=== PATIENT | female | born 1960 | race Caucasian/White ===

== ENCOUNTER → 2016-07-12 | Outpatient (CLI) | payer BC ==
[2013-11-23 12:55] VITALS: BP 109/65
[~2016-07-12] MED LIST: ALEVE220 MG PO; CALCIUM600 MG PO; CLINDAMYCIN 300MG PO; COMBIVENT1 AR1 IH; DOXYCYCLINE 10100 MG PO; DUO-KAPS1 CAP PO; IRON324 M1 PO; PREDNISONE20 M1 PO; PREDNISONE20 MG PO; REMERON15 MG PO; VITAMIN C PURE500 M1 PO
== END ==
LOC: LAB 11:53
DX: Z00.00 Encounter for general adult medical examination without abnormal findings (principal); E61.1 Iron deficiency

== ENCOUNTER → 2016-07-19 | Outpatient (CLI) | payer BC ==
[2013-11-23 12:55] VITALS: BP 109/65
== END ==
LOC: MAMMO 08:37
DX: Z12.31 Encounter for screening mammogram for malignant neoplasm of breast (principal)
CPT/HCPCS: G0202

== ENCOUNTER 2016-11-24 19:32 | Emergency (ER) | payer BC ==
[~2016-11-24] VITALS: Ht 170.2 cm; Wt 100.9 kg
[~2016-11-24 19:32] MED LIST changes: -CLINDAMYCIN 300MG PO; -PREDNISONE20 MG PO; -REMERON15 MG PO
[2016-11-24] MEDS ORDERED: REMERON15 MG PO (19:42)
[2016-11-24] MEDS ORDERED: CLINDAMYCIN 300MG PO (20:28)
[2016-11-24] MEDS ORDERED: PREDNISONE20 MG PO (20:56)
[2016-11-24 21:07] VITALS: BP 134/60
== END 2016-11-24 21:07 | disposition home or self-care (01) ==
LOC: ED 19:32
DX: L27.0 Generalized skin eruption due to drugs and medicaments taken internally (principal); T36.0X5A Adverse effect of penicillins, initial encounter; L29.9 Pruritus, unspecified; J32.9 Chronic sinusitis, unspecified; F17.210 Nicotine dependence, cigarettes, uncomplicated
CPT/HCPCS: J2930

== ENCOUNTER → 2016-12-01 | Outpatient (CLI) | payer BC ==
[2016-11-24 21:07] VITALS: BP 134/60
[~2016-12-01] MED LIST changes: +CLINDAMYCIN 300MG PO; +PREDNISONE20 MG PO; +REMERON15 MG PO
== END ==
LOC: LAB 08:52
DX: H60.02 Abscess of left external ear (principal)

== ENCOUNTER → 2018-02-01 | Outpatient (CLI) | payer BC ==
[2018-02-01 12:13] LABS: EOS # 0.2 (0.04-0.40); EOS % 2.5 % (1.0-5.0); HEMATOCRIT 48.8 % (37.0-47.0); HEMOGLOBIN 16.3 g/dL (12.5-16.0); LYMPH# 1.7 (1.50-4.00); MEAN CELL VOLUME 92 fl (78-100); MEAN CORPUSCULAR HEMOGLOBIN 31 pg (27-31); MEAN CORPUSCULAR HGB CONC 33 g/dL (33-37); MEAN PLATELET VOLUME 10.7 fl (7.4-10.4); MONO # 0.6 (0.20-0.80); NEU # 4.1 (1.40-6.50); PLATELET COUNT 189 K/mm3 (130-400); RED BLOOD COUNT 5.29 M/mm3 (4.10-5.30); RED CELL DISTRIBUTION WIDTH 13.5 % (11.5-14.5); WHITE BLOOD COUNT 6.5 K/mm3 (4.8-10.8)
[2018-02-01 12:27] LABS: ALBUMIN 4.2 g/dL (3.5-5.0); CALCIUM 9.1 mg/dL (8.4-10.2); POTASSIUM 4.4 mmol/L (3.6-5.0); TOTAL BILIRUBIN 0.7 mg/dL (0.2-1.3); TOTAL PROTEIN 7.2 g/dL (6.3-8.2)
[2018-02-01 14:57] LABS: ERYTHROCYTE SEDIMENTATION RATE 13 mm/hr (0-30)
== END ==
LOC: LAB 11:49
PROVIDERS: Internal Medicine
DX: Z12.11 Encounter for screening for malignant neoplasm of colon (principal); Z00.00 Encounter for general adult medical examination without abnormal findings

== ENCOUNTER → 2018-02-20 | Outpatient (CLI) | payer BC | LOC: MAMMO 12:58 → LAB 12:58 → MAMMO 13:00 | DX: Z12.31 Encounter for screening mammogram for malignant neoplasm of breast (principal) ==

== ENCOUNTER → 2018-03-06 | Outpatient (CLI) | payer BC ==
[2018-03-06 15:44] LABS: EOS # 0.1 (0.04-0.40); EOS % 1.7 % (1.0-5.0); HEMOGLOBIN 16.4 g/dL (12.5-16.0); LYMPH# 2.1 (1.50-4.00); MEAN CELL VOLUME 91 fl (78-100); MEAN CORPUSCULAR HEMOGLOBIN 31 pg (27-31); MEAN CORPUSCULAR HGB CONC 34 g/dL (33-37); MEAN PLATELET VOLUME 10.9 fl (7.4-10.4); MONO # 0.7 (0.20-0.80); NEU # 4.5 (1.40-6.50); PLATELET COUNT 210 K/mm3 (130-400); RED BLOOD COUNT 5.38 M/mm3 (4.10-5.30); RED CELL DISTRIBUTION WIDTH 13.7 % (11.5-14.5); WHITE BLOOD COUNT 7.4 K/mm3 (4.8-10.8)
[2018-03-06 16:20] LABS: ALBUMIN 4.7 g/dL (3.5-5.0); CALCIUM 9.5 mg/dL (8.4-10.2); POTASSIUM 4.3 mmol/L (3.6-5.0); TOTAL BILIRUBIN 0.6 mg/dL (0.2-1.3); TOTAL PROTEIN 7.2 g/dL (6.3-8.2)
[2018-03-07 13:29] LABS: HEPATITIS C ANTIBODY Negative (Negative)
== END ==
LOC: LAB 15:25
DX: B17.9 Acute viral hepatitis, unspecified (principal)

== ENCOUNTER → 2018-04-27 | Outpatient (CLI) | payer BC ==
[2018-04-27 14:37] LABS: EOS # 0.1 (0.04-0.40); EOS % 1.8 % (1.0-5.0); HEMATOCRIT 49.4 % (37.0-47.0); HEMOGLOBIN 16.5 g/dL (12.5-16.0); LYMPH# 1.6 (1.50-4.00); MEAN CELL VOLUME 91 fl (78-100); MEAN CORPUSCULAR HEMOGLOBIN 30 pg (27-31); MEAN CORPUSCULAR HGB CONC 33 g/dL (33-37); MEAN PLATELET VOLUME 10.9 fl (7.4-10.4); MONO # 0.6 (0.20-0.80); NEU # 3.8 (1.40-6.50); PLATELET COUNT 183 K/mm3 (130-400); RED BLOOD COUNT 5.42 M/mm3 (4.10-5.30); WHITE BLOOD COUNT 6.1 K/mm3 (4.8-10.8)
[2018-04-27 15:38] LABS: ALBUMIN 4.3 g/dL (3.5-5.0); CALCIUM 9.3 mg/dL (8.4-10.2); POTASSIUM 4.2 mmol/L (3.6-5.0); TOTAL BILIRUBIN 0.6 mg/dL (0.2-1.3); TOTAL PROTEIN 7.3 g/dL (6.3-8.2)
== END ==
LOC: LAB 14:22
DX: L40.0 Psoriasis vulgaris (principal); Z79.899 Other long term (current) drug therapy

== ENCOUNTER → 2018-05-28 | Outpatient (CLI) | payer BC ==
[2018-05-28 13:24] LABS: EOS # 0.1 (0.04-0.40); HEMATOCRIT 49.5 % (37.0-47.0); HEMOGLOBIN 16.6 g/dL (12.5-16.0); LYMPH# 2.6 (1.50-4.00); MEAN CELL VOLUME 91 fl (78-100); MEAN CORPUSCULAR HEMOGLOBIN 31 pg (27-31); MEAN CORPUSCULAR HGB CONC 34 g/dL (33-37); MEAN PLATELET VOLUME 10.8 fl (7.4-10.4); MONO # 0.6 (0.20-0.80); NEU # 3.7 (1.40-6.50); PLATELET COUNT 204 K/mm3 (130-400); RED BLOOD COUNT 5.45 M/mm3 (4.10-5.30); RED CELL DISTRIBUTION WIDTH 13.2 % (11.5-14.5)
[2018-05-28 13:28] LABS: ALBUMIN 4.4 g/dL (3.5-5.0); CALCIUM 9.6 mg/dL (8.4-10.2); POTASSIUM 4.4 mmol/L (3.6-5.0); TOTAL BILIRUBIN 0.5 mg/dL (0.2-1.3); TOTAL PROTEIN 7.7 g/dL (6.3-8.2)
== END ==
LOC: LAB 13:04
DX: L40.0 Psoriasis vulgaris (principal); Z79.899 Other long term (current) drug therapy

== ENCOUNTER → 2018-06-18 | Outpatient (CLI) | payer BC | LOC: RAD 14:11 | DX: M16.11 Unilateral primary osteoarthritis, right hip (principal); I70.8 Atherosclerosis of other arteries ==

== ENCOUNTER 2018-08-03 11:30 | Outpatient (RCR) | payer BC | END 2018-08-03 12:00 | disposition home or self-care (01) | LOC: PT 11:30 | DX: M70.62 Trochanteric bursitis, left hip (principal); M62.89 Other specified disorders of muscle ==

== ENCOUNTER → 2018-09-24 | Outpatient (CLI) | payer BC ==
[2018-09-24 16:14] LABS: EOS # 0.1 (0.04-0.40); EOS % 1.2 % (1.0-5.0); HEMATOCRIT 47.3 % (37.0-47.0); HEMOGLOBIN 15.9 g/dL (12.5-16.0); LYMPH# 2.6 (1.50-4.00); MEAN CELL VOLUME 92 fl (78-100); MEAN CORPUSCULAR HEMOGLOBIN 31 pg (27-31); MEAN CORPUSCULAR HGB CONC 34 g/dL (33-37); MEAN PLATELET VOLUME 10.6 fl (7.4-10.4); MONO # 0.7 (0.20-0.80); NEU # 5.1 (1.40-6.50); PLATELET COUNT 203 K/mm3 (130-400); RED BLOOD COUNT 5.17 M/mm3 (4.10-5.30); RED CELL DISTRIBUTION WIDTH 13.5 % (11.5-14.5); WHITE BLOOD COUNT 8.6 K/mm3 (4.8-10.8)
[2018-09-24 16:25] LABS: ALBUMIN 4.1 g/dL (3.5-5.0); POTASSIUM 3.9 mmol/L (3.5-5.1)
[2018-09-24 16:26] LABS: CALCIUM 9.4 mg/dL (8.3-10.5)
[2018-09-24 16:27] LABS: TOTAL PROTEIN 7.2 g/dL (6.4-8.3)
[2018-09-24 16:29] LABS: TOTAL BILIRUBIN 0.5 mg/dL (0.2-1.2)
== END ==
LOC: LAB 16:03
DX: L40.0 Psoriasis vulgaris (principal)

== ENCOUNTER → 2019-01-04 | Outpatient (CLI) | payer BC ==
[2019-01-04 14:51] LABS: EOS # 0.1 (0.04-0.40); HEMATOCRIT 49.7 % (37.0-47.0); HEMOGLOBIN 16.9 g/dL (12.5-16.0); LYMPH# 2.4 (1.50-4.00); MEAN CELL VOLUME 90 fl (78-100); MEAN CORPUSCULAR HEMOGLOBIN 31 pg (27-31); MEAN CORPUSCULAR HGB CONC 34 g/dL (33-37); MEAN PLATELET VOLUME 10.6 fl (7.4-10.4); MONO # 0.6 (0.20-0.80); NEU # 4.5 (1.40-6.50); PLATELET COUNT 204 K/mm3 (130-400); RED BLOOD COUNT 5.55 M/mm3 (4.10-5.30); RED CELL DISTRIBUTION WIDTH 13.3 % (11.5-14.5); WHITE BLOOD COUNT 7.7 K/mm3 (4.8-10.8)
[2019-01-04 15:03] LABS: ALBUMIN 4.5 g/dL (3.5-5.0); POTASSIUM 4.4 mmol/L (3.5-5.1)
[2019-01-04 15:04] LABS: CALCIUM 9.8 mg/dL (8.3-10.5)
[2019-01-04 15:06] LABS: TOTAL PROTEIN 7.4 g/dL (6.4-8.3)
[2019-01-04 15:07] LABS: TOTAL BILIRUBIN 0.6 mg/dL (0.2-1.2)
== END ==
LOC: LAB 14:41
DX: L30.9 Dermatitis, unspecified (principal)

== ENCOUNTER 2019-05-01 13:54 | Emergency (ER) | payer BC ==
[~2019-05-01] VITALS: Ht 170.2 cm; Wt 97.3 kg
[~2019-05-01 13:54] MED LIST changes: +CALCIUM 600600 M2 PO; -CALCIUM600 MG PO
[2019-05-01] MEDS ORDERED: PROAIR HFA0.09 MG/AC IH (14:19)
[2019-05-01] MEDS ORDERED: CLOBETASOL OINT TOP (14:20)
[2019-05-01] MEDS ORDERED: DESOXIMETASONE60 G1 TP (14:21)
[2019-05-01] MEDS ORDERED: FLONASE ALLERG9.9 ML NS (14:22)
[2019-05-01] MEDS ORDERED: TALTZ AUTO80 MG/1 ML SQ (14:24)
[2019-05-01] MEDS ORDERED: FISH OIL1 IU PO (14:27)
[2019-05-01 14:34] LABS: HEMATOCRIT 46.5 % (37.0-47.0); HEMOGLOBIN 15.3 g/dL (12.5-16.0); MEAN CELL VOLUME 90 fl (78-100); MEAN CORPUSCULAR HEMOGLOBIN 30 pg (27-31); MEAN CORPUSCULAR HGB CONC 33 g/dL (33-37); MEAN PLATELET VOLUME 11.2 fl (7.4-10.4); PLATELET COUNT 153 K/mm3 (130-400); RED BLOOD COUNT 5.15 M/mm3 (4.10-5.30); RED CELL DISTRIBUTION WIDTH 13.1 % (11.5-14.5); WHITE BLOOD COUNT 4.6 K/mm3 (4.8-10.8)
[2019-05-01 14:37] LABS: ALBUMIN 4.3 g/dL (3.5-5.0); POTASSIUM 4.3 mmol/L (3.5-5.1)
[2019-05-01 14:39] LABS: CALCIUM 8.9 mg/dL (8.3-10.5)
[2019-05-01 14:40] LABS: TOTAL PROTEIN 7.3 g/dL (6.4-8.3)
[2019-05-01 14:42] LABS: TOTAL BILIRUBIN 0.3 mg/dL (0.2-1.2)
[2019-05-01 14:45] LABS: LYMPHOCYTE 15 % (20-51); MONOCYTE 13 % (3-10); NEUTROPHILS 71 % (42-75)
[2019-05-01] MEDS ORDERED: ALBUTEROL2.5 MG/3 M IH (16:14)
[2019-05-01] MEDS ORDERED: TAMIFLU 75MG75 MG PO (16:14)
[2019-05-01 16:48] VITALS: BP 104/53
== END 2019-05-01 16:30 | disposition home or self-care (01) ==
LOC: ED 13:54
PROVIDERS: Physician Assistant
DX: J40 Bronchitis, not specified as acute or chronic (principal); J10.1 Influenza due to other identified influenza virus with other respiratory manifestations; G47.00 Insomnia, unspecified; F17.210 Nicotine dependence, cigarettes, uncomplicated; Z88.0 Allergy status to penicillin; Z88.8 Allergy status to other drugs, medicaments and biological substances
CPT/HCPCS: J2930

== ENCOUNTER → 2019-08-30 | Outpatient (CLI) | payer BC ==
[~2019-08-30] MED LIST changes: +ALBUTEROL2.5 MG/3 M IH; +CLOBETASOL OINT TOP; +DESOXIMETASONE60 G1 TP; +FISH OIL1 IU PO; +FLONASE ALLERG9.9 ML NS; +PROAIR HFA0.09 MG/AC IH; +TALTZ AUTO80 MG/1 ML SQ; +TAMIFLU 75MG75 MG PO
[2019-08-30 15:15] LABS: EOS # 0.1 (0.04-0.40); EOS % 1.3 % (1.0-5.0); HEMOGLOBIN 16.1 g/dL (12.5-16.0); LYMPH# 2.1 (1.50-4.00); MEAN CELL VOLUME 91 fl (78-100); MEAN CORPUSCULAR HEMOGLOBIN 30 pg (27-31); MEAN CORPUSCULAR HGB CONC 33 g/dL (33-37); MEAN PLATELET VOLUME 10.4 fl (7.4-10.4); MONO # 0.8 (0.20-0.80); NEU # 5.2 (1.40-6.50); PLATELET COUNT 249 K/mm3 (130-400); RED BLOOD COUNT 5.38 M/mm3 (4.10-5.30); RED CELL DISTRIBUTION WIDTH 13.1 % (11.5-14.5); WHITE BLOOD COUNT 8.2 K/mm3 (4.8-10.8)
[2019-08-30 15:19] LABS: ALBUMIN 4.3 g/dL (3.5-5.0)
[2019-08-30 15:20] LABS: POTASSIUM 4.4 mmol/L (3.5-5.1)
[2019-08-30 15:21] LABS: CALCIUM 9.8 mg/dL (8.3-10.5)
[2019-08-30 15:22] LABS: TOTAL PROTEIN 7.6 g/dL (6.4-8.3)
[2019-08-30 15:24] LABS: TOTAL BILIRUBIN 0.5 mg/dL (0.2-1.2)
== END ==
LOC: LAB 14:55
DX: L40.0 Psoriasis vulgaris (principal)

== ENCOUNTER → 2019-11-21 | Outpatient (CLI) | payer BC ==
[2019-11-19 16:30] VITALS: BP 124/78
[~2019-11-21] MED LIST changes: +BENADRYL ALLERG25 M2 PO; +DAILY VITE1 TA1 PO; -DUO-KAPS1 CAP PO; -IRON324 M1 PO; +LEVAQUIN 750MG750 M1 PO; +NATURAL IRON65 MG PO; +NATURAL VITAM1000 MG PO; -VITAMIN C PURE500 M1 PO
== END ==
LOC: RAD 15:22
DX: J32.9 Chronic sinusitis, unspecified (principal); J39.2 Other diseases of pharynx; H53.2 Diplopia

== ENCOUNTER → 2019-11-22 | Outpatient (CLI) | payer BC ==
[2019-11-19 16:30] VITALS: BP 124/78
[2019-11-22 09:47] LABS: EOS # 0.1 (0.04-0.40); EOS % 1.1 % (1.0-5.0); HEMATOCRIT 43.4 % (37.0-47.0); HEMOGLOBIN 14.9 g/dL (12.5-16.0); MEAN CELL VOLUME 85 fl (78-100); MEAN CORPUSCULAR HEMOGLOBIN 29 pg (27-31); MEAN CORPUSCULAR HGB CONC 34 g/dL (33-37); MEAN PLATELET VOLUME 9.7 fl (7.4-10.4); MONO # 1.1 (0.20-0.80); NEU # 6.7 (1.40-6.50); PLATELET COUNT 299 K/mm3 (130-400); RED BLOOD COUNT 5.08 M/mm3 (4.10-5.30); RED CELL DISTRIBUTION WIDTH 12.7 % (11.5-14.5); WHITE BLOOD COUNT 9.9 K/mm3 (4.8-10.8)
[2019-11-22 09:59] LABS: ALBUMIN 4.2 g/dL (3.4-4.8); POTASSIUM 3.7 mmol/L (3.5-5.1)
[2019-11-22 10:00] LABS: CALCIUM 10.7 mg/dL (8.3-10.5)
[2019-11-22 10:01] LABS: TOTAL PROTEIN 7.8 g/dL (6.2-8.1)
[2019-11-22 10:03] LABS: TOTAL BILIRUBIN 0.4 mg/dL (0.2-1.2)
[2019-11-22 10:52] LABS: ERYTHROCYTE SEDIMENTATION RATE 36 mm/hr (0-30)
== END ==
LOC: LAB 09:36
PROVIDERS: Internal Medicine
DX: Z00.00 Encounter for general adult medical examination without abnormal findings (principal)

== ENCOUNTER → 2019-11-26 | Outpatient (CLI) | payer BC ==
[2019-11-19 16:30] VITALS: BP 124/78
== END ==
LOC: RAD 08:07
DX: J39.2 Other diseases of pharynx (principal); H53.2 Diplopia
CPT/HCPCS: A9585

== ENCOUNTER 2019-11-28 01:53 | Emergency (ER) | payer BC ==
[~2019-11-28] VITALS: Ht 170.2 cm; Wt 86.4 kg
[2019-11-28 02:40] LABS: EOS # 0.1 (0.04-0.40); EOS % 0.4 % (1.0-5.0); HEMATOCRIT 41.6 % (37.0-47.0); HEMOGLOBIN 14.6 g/dL (12.5-16.0); LYMPH# 2.7 (1.50-4.00); MEAN CELL VOLUME 83 fl (78-100); MEAN CORPUSCULAR HEMOGLOBIN 29 pg (27-31); MEAN CORPUSCULAR HGB CONC 35 g/dL (33-37); MEAN PLATELET VOLUME 10.1 fl (7.4-10.4); MONO # 1.1 (0.20-0.80); NEU # 8.5 (1.40-6.50); PLATELET COUNT 286 K/mm3 (130-400); RED BLOOD COUNT 4.99 M/mm3 (4.10-5.30); RED CELL DISTRIBUTION WIDTH 12.5 % (11.5-14.5); WHITE BLOOD COUNT 12.3 K/mm3 (4.8-10.8)
[2019-11-28 02:42] LABS: ALBUMIN 4.2 g/dL (3.4-4.8); POTASSIUM 3.1 mmol/L (3.5-5.1)
[2019-11-28 02:43] LABS: CALCIUM 10.4 mg/dL (8.3-10.5)
[2019-11-28 02:44] LABS: TOTAL PROTEIN 7.6 g/dL (6.2-8.1)
[2019-11-28 02:46] LABS: TOTAL BILIRUBIN 0.5 mg/dL (0.2-1.2)
[2019-11-28 08:03] LABS: ALBUMIN 4.1 g/dL (3.4-4.8); POTASSIUM 3.5 mmol/L (3.5-5.1)
[2019-11-28 08:06] LABS: TOTAL PROTEIN 7.5 g/dL (6.2-8.1)
[2019-11-28 08:07] LABS: TOTAL BILIRUBIN 0.5 mg/dL (0.2-1.2)
[2019-11-28 10:43] VITALS: BP 110/71
== END 2019-11-28 11:00 | disposition short-term general hospital (02) ==
LOC: ED 01:53
PROVIDERS: Family Medicine; Internal Medicine; Physician Assistant
DX: J98.8 Other specified respiratory disorders (principal); R22.9 Localized swelling, mass and lump, unspecified; Z88.1 Allergy status to other antibiotic agents; Z88.6 Allergy status to analgesic agent; Z20.828 Contact with and (suspected) exposure to other viral communicable diseases
CPT/HCPCS: J1170; J2405; J3010; J3480; J7030; Q9967

== ENCOUNTER → 2019-12-09 | Outpatient (CLI) | payer BC ==
[2019-11-28 10:43] VITALS: BP 110/71
[~2019-12-09] VITALS: Ht 170.2 cm; Wt 81.8 kg
[~2019-12-09] MED LIST changes: +ACETAMINOP160 MG/10 PO; +CALCITRATE200 MG PO; +CLARITIN LIQUI-10 MG PO; +DICLOFENAC SOD100 GM TP; +FEOSOL325 MG PO; +FISH OIL CONC1 EACH PO; +LIDOCAINE PAIN1 EACH TP; +MECLIZINE PO; +MIRTAZAPINE7.5 M1 PO; +MULTIVITAMIN1 SGL PO; +NICOTINE14 MG/24 H TOP; +OMEPRAZOLE40 MG PO; +POTASSIUM CHLO480 ML PO; +PREDNISONE5 MG/5 M1 PEG; +RT SPIRIVA INH18 MCG IH; +SYMBICORT1 AE3 IH
== END ==
LOC: AMSURD 18:35
DX: R42 Dizziness and giddiness (principal)

== ENCOUNTER → 2019-12-16 | Outpatient (CLI) | payer BC ==
[2019-11-28 10:43] VITALS: BP 110/71
[~2019-12-16] MED LIST changes: +CLONAZEPAM0.5 M1 PO
[2019-12-16 11:22] LABS: HEMATOCRIT 37.1 % (37.0-47.0); HEMOGLOBIN 12.1 g/dL (12.5-16.0); MEAN CELL VOLUME 90 fl (78-100); MEAN CORPUSCULAR HEMOGLOBIN 29 pg (27-31); MEAN CORPUSCULAR HGB CONC 33 g/dL (33-37); MEAN PLATELET VOLUME 11.2 fl (7.4-10.4); PLATELET COUNT 302 K/mm3 (130-400); RED BLOOD COUNT 4.14 M/mm3 (4.10-5.30); RED CELL DISTRIBUTION WIDTH 13.3 % (11.5-14.5); WHITE BLOOD COUNT 11.7 K/mm3 (4.8-10.8)
[2019-12-16 11:34] LABS: ALBUMIN 3.6 g/dL (3.4-4.8); POTASSIUM 4.5 mmol/L (3.5-5.1)
[2019-12-16 11:35] LABS: CALCIUM 9.5 mg/dL (8.3-10.5)
[2019-12-16 11:37] LABS: TOTAL PROTEIN 6.3 g/dL (6.2-8.1)
[2019-12-16 11:38] LABS: TOTAL BILIRUBIN 0.4 mg/dL (0.2-1.2)
[2019-12-16 11:39] LABS: LYMPHOCYTE 7 % (20-51); MONOCYTE 3 % (3-10); NEUTROPHILS 89 % (42-75)
[2019-12-16 11:43] LABS: MAGNESIUM 1.9 mg/dL (1.60-2.60)
== END ==
LOC: LAB 11:09
PROVIDERS: Internal Medicine
DX: Z00.00 Encounter for general adult medical examination without abnormal findings (principal); C14.0 Malignant neoplasm of pharynx, unspecified

== ENCOUNTER 2020-01-03 12:37 | Emergency (ER) | payer BC ==
[2019-12-16 22:10] VITALS: BP 143/81
== END 2020-01-03 12:40 | disposition left against medical advice (07) ==
LOC: ED 12:37
DX: R69 Illness, unspecified (principal); Z53.21 Procedure and treatment not carried out due to patient leaving prior to being seen by health care provider

== ENCOUNTER → 2020-01-13 | Outpatient (CLI) | payer BC ==
[2019-12-16 22:10] VITALS: BP 143/81
[2020-01-13 19:12] LABS: HEMATOCRIT 47.2 % (37.0-47.0); HEMOGLOBIN 15.5 g/dL (12.5-16.0); MEAN CELL VOLUME 88 fl (78-100); MEAN CORPUSCULAR HEMOGLOBIN 29 pg (27-31); MEAN CORPUSCULAR HGB CONC 33 g/dL (33-37); MEAN PLATELET VOLUME 10.2 fl (7.4-10.4); PLATELET COUNT 213 K/mm3 (130-400); RED BLOOD COUNT 5.34 M/mm3 (4.10-5.30); RED CELL DISTRIBUTION WIDTH 14.5 % (11.5-14.5); WHITE BLOOD COUNT 12.5 K/mm3 (4.8-10.8)
[2020-01-13 19:15] LABS: ALBUMIN 3.5 g/dL (3.4-4.8); POTASSIUM 3.6 mmol/L (3.5-5.1)
[2020-01-13 19:16] LABS: CALCIUM 9.6 mg/dL (8.3-10.5)
[2020-01-13 19:17] LABS: TOTAL PROTEIN 6.4 g/dL (6.2-8.1)
[2020-01-13 19:19] LABS: LYMPHOCYTE 11 % (20-51); MONOCYTE 4 % (3-10); NEUTROPHILS 85 % (42-75); TOTAL BILIRUBIN 0.7 mg/dL (0.2-1.2)
[2020-01-13 19:23] LABS: MAGNESIUM 2.11 mg/dL (1.60-2.60)
== END ==
LOC: LAB 17:45
PROVIDERS: Internal Medicine
DX: C14.0 Malignant neoplasm of pharynx, unspecified (principal); R06.02 Shortness of breath

== ENCOUNTER → 2020-01-16 | Outpatient (CLI) | payer BC ==
[2019-12-16 22:10] VITALS: BP 143/81
[2020-01-16 18:49] LABS: ALBUMIN 3.2 g/dL (3.4-4.8); CALCIUM 9.2 mg/dL (8.3-10.5); POTASSIUM 3.4 mmol/L (3.5-5.1); TOTAL BILIRUBIN 0.5 mg/dL (0.2-1.2); TOTAL PROTEIN 5.6 g/dL (6.2-8.1)
== END ==
LOC: LAB 18:33
PROVIDERS: Internal Medicine
DX: C14.0 Malignant neoplasm of pharynx, unspecified (principal)

== ENCOUNTER 2020-01-30 18:40 | Emergency (ER) | payer BC ==
[2019-12-16 22:10] VITALS: BP 143/81
== END 2020-01-30 18:54 | disposition left against medical advice (07) ==
LOC: ED 18:40
DX: R69 Illness, unspecified (principal); Z53.21 Procedure and treatment not carried out due to patient leaving prior to being seen by health care provider